=== PATIENT | male | born 1955 | race Caucasian/White ===

== ENCOUNTER → 2016-10-29 | Outpatient (CLI) | payer OTHER ==
[~2016-10-29] MED LIST: GLUC500T8 PO; OMEG1CAP56 PO
== END | disposition home or self-care (01) ==
LOC: STAR 07:53
PROVIDERS: ATTEND Orthopaedic Surgery
DX: Z01.818 Encounter for other preprocedural examination (principal); M25.572 Pain in left ankle and joints of left foot; M76.72 Peroneal tendinitis, left leg
CPT/HCPCS: 93005

== ENCOUNTER 2018-04-17 09:35 | Day surgery (SDC) | payer OTHER ==
[2018-04-13 14:58] VITALS: BP 129/82
[~2018-04-17] VITALS: Ht 180.3 cm; Wt 92.2 kg
[~2018-04-17 09:35] MED LIST changes: +BUPIVACAINE/PF-EPI 0.5% 1:200K ONE; +GLUC500T11 PO; -GLUC500T8 PO; +OMEG-172 PO; -OMEG1CAP56 PO; +OMEP20TA62 PO; +VIT1CAPS42 PO
[2018-04-17] MEDS ORDERED: LACTATED RINGERS 1,000 ML IV SCH (09:45)
[2018-04-17 10:00] VITALS: BP 129/82
[2018-04-17] MEDS ORDERED: GABAPENTIN 300 MG CAPSULE PO ONE (10:00)
[2018-04-17] MEDS ORDERED: LIDOCAINE-MPF 1%, 2ML INFIL ONE (10:00)
[2018-04-17] MEDS ORDERED: ACETAMINOPHEN 500 MG TABLET PO ONE (10:00)
[2018-04-17] MEDS ORDERED: FENTANYL PF 250 MCG/5ML ONE (10:24)
[2018-04-17] MEDS ORDERED: HYDROmorphone 2 MG/ML, 1ML IVPush PRN (10:30)
[2018-04-17] MEDS ORDERED: hydrALAzine 20 MG/ML, 1ML IV PRN (10:30)
[2018-04-17] MEDS ORDERED: PROCHLORPERAZINE 5 MG/ML, 2ML IV PRN (10:30)
[2018-04-17] MEDS ORDERED: DIPHENHYDRAMINE 50 MG/ML, 1ML IVPush PRN (10:30)
[2018-04-17] MEDS ORDERED: HALOPERIDOL 5 MG/ML IV PRN (10:30)
[2018-04-17] MEDS ORDERED: OXYcodone 5 MG/5 ML ORAL.SOL UDC PO PRN (10:30)
[2018-04-17] MEDS ORDERED: METOPROLOL 1 MG/ML, 5ML IV PRN (10:30)
[2018-04-17] MEDS ORDERED: LABETALOL 5MG/ML, 20ML IV PRN (10:30)
[2018-04-17] MEDS ORDERED: PROMETHAZINE 25 MG/ML, 1ML IV PRN (10:30)
[2018-04-17] MEDS ORDERED: MEPERIDINE/PF 25MG/0.5ML IVPush PRN (10:30)
[2018-04-17] MEDS ORDERED: SUCCINYLCHOLINE 20 MG/ML, 10ML ONE (11:00)
[2018-04-17] MEDS ORDERED: DEXAMETHASONE 4 MG/ML, 1ML ONE (12:03)
[2018-04-17] MEDS ORDERED: PROPOFOL 10 MG/ML, 20ML ONE (12:03)
[2018-04-17] MEDS ORDERED: CEFAZOLIN 1,000 MG ONE (12:03)
[2018-04-17] MEDS ORDERED: ONDANSETRON 2MG/ML, 2ML ONE (12:03)
[2018-04-17 12:27] LABS: 10MIN %DROP IOPTH 83 %; 5MIN %DROP IOPTH 77 %; IOPTH BASELINE 199 pg/mL; SAMPLE 5 %DROP IOPTH 87 %
[2018-04-17] MEDS ORDERED: FENTANYL PF 100 MCG/2ML ONE (12:50)
[2018-04-17] MEDS ORDERED: OXYcodone 5 MG/5 ML ORAL.SOL UDC ONE (12:51)
[2018-04-17] MEDS: FENTANYL PF 100 MCG/2ML IV PRN ×2 (12:55→13:00)
== END 2018-04-17 15:08 | disposition home or self-care (01) ==
LOC: OUT 09:35
PROVIDERS: ATTEND Surgery
DX: D35.1 Benign neoplasm of parathyroid gland (principal); K21.9 Gastro-esophageal reflux disease without esophagitis; E83.52 Hypercalcemia; Z98.52 Vasectomy status; Z72.89 Other problems related to lifestyle; Z88.8 Allergy status to other drugs, medicaments and biological substances
CPT/HCPCS: 36415; 60500; 83970; 88305; C1760; J0330; J0690; J1100; J2405; J2704; J3010; J7120